=== PATIENT | female | born 1965 | race Two or more races ===

== ENCOUNTER 2024-04-26 13:36 | Emergency (ER) | payer SELFPAY ==
[~2024-04-26] VITALS: Ht 152.4 cm; Wt 81.8 kg
[2024-04-26 13:57] VITALS: TEMP 98.3
[2024-04-26 14:15] LABS: COVID AG,FIA SOURCE NASAL SWAB
[2024-04-26 14:54] LABS: SARS-COV2 (COVID) ANTIGEN,FIA Negative (Negative)
[2024-04-26 15:10] LABS: INFLUENZA TYPE B NEGATIVE FOR TYPE B (NEGATIVE)
[2024-04-26 15:16] LABS: INFLUENZA TYPE A POSITIVE FOR TYPE A (NEGATIVE)
[2024-04-26 15:40] VITALS: BP 134/75; PULSE 85; RESP 18; O2SAT 100
[2024-04-26] MEDS: ACETAMINOPHEN 500 MG TABLET PO ONE (16:12)
[2024-04-26] MEDS ORDERED: OSEL75CA45 PO (16:38)
[2024-04-26] MEDS ORDERED: ACET-3385 PO (16:39)
== END 2024-04-26 17:50 | disposition home or self-care (01) ==
LOC: EMS 13:36
DX: J11.1 Influenza due to unidentified influenza virus with other respiratory manifestations (principal); Z20.822 Contact with and (suspected) exposure to COVID-19
CPT/HCPCS: 87804; 99283